=== PATIENT | male | born 1975 | race Caucasian/White ===

== ENCOUNTER 2018-06-09 06:58 | Emergency (ER) | payer SELFPAY ==
[2018-06-09] MEDS ORDERED: EPINEPHrine HCL AMP 1 MG/ML AMP IM ONE (07:05)
[2018-06-09] MEDS ORDERED: EPINEPHrine HCL AMP 1 MG/ML AMP ONE (07:09)
[2018-06-09] MEDS ORDERED: methylPREDNISolone SODIUM SUC 125 MG/2 ML VIAL IV ONE (07:32)
[2018-06-09] MEDS ORDERED: cefTRIAXone SODIUM 1 GM in SODIUM CHL 0.9% 50ML MIN-BAG+ 50 ML IVPB ONE (07:33)
[2018-06-09] MEDS ORDERED: cefTRIAXone SODIUM 1 GM VIAL ONE (07:39)
[2018-06-09] MEDS ORDERED: SODIUM CHL 0.9% 50ML MIN-BAG+ 50 ML IVPB ONE (07:39)
--- NOTE | 2018-06-09 08:00 | RAD ---
EXAM DESCRIPTION: Chest,2 Views CLINICAL HISTORY: 43 years Male, neck swelling, sob COMPARISON: None Available TECHNIQUE: PA/lateral FINDINGS: There is no cardiac or pulmonary abnormality. The lungs are clear. There is no effusion. IMPRESSION: 1. Normal two-view chest. Electronically signed by: Matt Garrett MD 06/09/2018 7:59 AM [employer]
--- NOTE | 2018-06-09 08:01 | CT ---
EXAM: CT head without contrast CLINICAL HISTORY: neck swelling, sob COMPARISON STUDY: None TECHNICAL: Noncontrast CT images were acquired through the brain. FINDINGS: The cerebral and cerebellar parenchyma appears normal. No intracranial hemorrhage. The ventricles are not dilated. There is incidental note of a cavum septum pellucidum. No masses are identified. The calvarium appears intact. Mucosal thickening is seen in a few right-sided ethmoid air cells. IMPRESSION: 1. No acute intracranial abnormality. 2. Right side ethmoid sinusitis. This exam was performed according to our departmental dose-optimization program, which includes automated exposure control, adjustment of the mA and/or kV according to patient size and/or use of iterative reconstruction technique. Electronically signed by: Juan Manuel Aparicio MD 06/09/2018 8:00 AM [facility]
--- NOTE | 2018-06-09 08:11 | CT ---
EXAM DESCRIPTION: Soft Tissue Neck w/Contrast CLINICAL HISTORY: 43 years Male, neck swelling, sob COMPARISON: Head CT examination June 09, 2018 TECHNIQUE: This exam was performed according to our departmental dose-optimization program, which includes automated exposure control, adjustment of the mA and/or kV according to patient size and/or use of iterative reconstruction technique. Contrast enhanced examination with MPR reformatted studies. FINDINGS: Normal alignment of the cervical spine with degenerative disc narrowing and posterior bony ridging at the C6-7 level with mild anterior spurs at this level and at the less degenerative C5-6 level. Mild straightening of the normal lordosis of the cervical spine is noted. No retropharyngeal or prevertebral soft tissue swelling or abscess is seen. There is heterogeneous enlargement and indistinctness and inflammatory changes surrounding both symmetrically enlarged submandibular gland suggesting an element of sialoadenitis. No significant involvement of the parotid glands is noted. The base of the tongue and the epiglottis and the larynx appear normal with a small normal appearance of the thyroid gland with no evidence of abnormality at the thoracic inlet or upper extent of the superior mediastinum. Region of the parapharyngeal space is indistinct and appears inflamed without drainable fluid collection or abscess with some fullness in each lateral pharyngeal sidewall suggesting some involvement of either palatine tonsillar region or pharyngeal mucosa with the inflammation. This lies just cephalad to the inflamed enlarged submandibular salivary glands. The intrinsic musculature of the tongue is intact. Innumerable small normal in upper normal lymph nodes are evident on both the left and with fewer but slightly larger lymph nodes noted along the anterior margin of the right sternocleidomastoid adjacent to the jugular vein. Conglomerate or necrotic or markedly enlarged lymph nodes to suggest either an abscess or neoplasm is not apparent. The appearance is most suggestive of an inflammatory process. The supraclavicular region and base of the neck and pulmonary apices are unremarkable. IMPRESSION: 1. Symmetric enlarged heterogeneous and inflamed appearing submandibular glands with surrounding inflammation in the adjacent soft tissue planes and subcutaneous structures consistent with bilateral sialoadenitis of the submandibular glands. An obstructing stone or drainable fluid collection or abscess is not apparent. 2. Mild bilateral neck adenopathy with numerous small nodes along the undersurface and posterior margin of the left sternocleidomastoid in the normal to upper normal range in fewer but slightly more prominent upper normal lymph nodes in the jugulodigastric region on the right. Reactive lymphadenopathy is thought most likely. 3. Mild deep soft tissue swelling above the submandibular glands and the region of the parapharyngeal space and lateral pharyngeal sidewall bilaterally without discrete mass or drainable abscess. 4. The base of the neck and thoracic inlet and region of the thyroid gland and superiorly the region of the parotid glands appears normal. No abnormality of the retropharyngeal space or effusion of the epiglottis noted. 5. Minimal mucosal thickening right maxillary and ethmoid sinuses with more significant mucosal thickening in the left maxillary sinus without a definite air-fluid level. Electronically signed by: Ryan Ny MD 06/09/2018 8:10 AM W[employer] ATTENDANT
[2018-06-09] MEDS ORDERED: metroNIDAZOLE IV PREMIX 500MG 500 MG in PREMIX BAG 1 BAG IVPB ONE (08:18)
[2018-06-09] MEDS ORDERED: VANCOMYCIN HCL INJ 1,000 MG, VANCOMYCIN HCL INJ 500 MG in SODIUM CHLORIDE 0.9% 250ML 25... IVPB ONE (08:23)
[2018-06-09] MEDS ORDERED: metroNIDAZOLE IV PREMIX 500MG 100 ML IVPB ONE (08:36)
[2018-06-09] MEDS ORDERED: SODIUM CHLORIDE 0.9% 250ML 250 ML ONE (08:43)
[2018-06-09] MEDS ORDERED: VANCOMYCIN HCL INJ 500 MG VIAL ONE (08:43)
[2018-06-09] MEDS ORDERED: VANCOMYCIN HCL INJ 1,000 MG VIAL IVPB ONE (08:43)
--- NOTE | 2018-06-09 08:55 | ED.PDOC ---
History of Present Illness - General Chief Complaint: Respiratory Problem Stated Complaint: short of breath, anxiety Time Seen by Provider: 06/09/18 07:14 Source: patient Exam Limitations: no limitations - History of Present Illness Initial Comments: The patient is a 43-year-old male presenting to the emergency room secondary to swelling in his neck causing some mild shortness of breath. He reports that the swelling started 4-6 hours ago. He reports that it started with pain underneath his tongue. The patient's vital signs are within normal limits upon arrival but he is obviously having an anxiety attack. There does appear to be some mild posterior oropharyngeal swelling but no obvious focal abscess. No swelling of the uvula. He is speaking clearly. He is moving air well. He does have significant swelling of the area surrounding the submandibular glands bilaterally. He reports that it was not like this last night at all when he went to bed. He does report methamphetamine use. He denies other significant medical problems. He reports having a headache. He reports feeling a little bit fuzzy headed but he is not confused. The patient's shortness of breath did significantly improve after we were able to calm him down. Due to the rapidity of onset he did receive one trial dose of 0.3 mg of epinephrine IM. This did not really change his condition. No evidence of any hypotension. He was mildly diaphoretic upon arrival but he was obviously in an anxiety attack. Timing/Duration: 4-6 hours Severity: severe Improving Factors: nothing Worsening Factors: nothing Associated Symptoms: cough, headaches, shortness of breath Allergies/Adverse Reactions: Allergies NO KNOWN ALLERGY Allergy (Verified 06/09/18 07:04) Home Medications: Ambulatory Orders NK 06/09/18 Review of Systems - Review of Systems Constitutional: States: diaphoresis EENTM: States: throat pain, throat swelling Respiratory: States: short of breath Cardiology: States: no symptoms reported Gastrointestinal/Abdominal: States: no symptoms reported Genitourinary: States: no symptoms reported Musculoskeletal: States: no symptoms reported Skin: States: no symptoms reported Neurological: States: anxiety Endocrine: States: no symptoms reported All other Systems: No Change from Baseline Past Medical History (General) - Patient Medical History Hx Asthma: No Hx of COPD: No Hx Cardiac Disorders: No Hx Hypertension: No Hx Diabetes: No Hx Cancer: No Hx Hepatitis C: No - Vaccination History Hx Tetanus, Diphtheria Vaccination: Yes Hx Influenza Vaccination: Yes - Social History Hx Tobacco Use: Yes Hx Chewing Tobacco Use: Yes Hx Alcohol Use: No Hx Substance Use: Yes Family Medical History - Family History Mother Family History: No Known Physical Exam - Physical Exam General Appearance: Alert, Anxious Eye Exam: bilateral normal Ears, Nose, Throat: hearing grossly normal, other - there is some significant posterior or pharyngeal diffuse swelling. Neck: other - the patient does have tender bilateral submandibular glands that are swollen significantly. No real reddening of the skin at this point. Respiratory: lungs clear, normal breath sounds, no respiratory distress, no accessory muscle use Cardiovascular/Chest: normal peripheral pulses, regular rate, rhythm, no edema Peripheral Pulses: radial,right: 2+, radial,left: 2+, dorsalis pedis,right: 2+, dorsalis pedis,left: 2+ Gastrointestinal/Abdominal: non tender, soft Rectal Exam: deferred Back Exam: no CVA tenderness, no vertebral tenderness Extremity: non-tender, normal inspection, no pedal edema, normal capillary refill Neurologic: distribution estimator II-XII nml as tested, alert, normal mood/affect - after we were able to calm his anxiety, oriented x 3 Skin Exam: normal color Comments: Vital Signs - 24 hr 06/09/18 06/09/18 06/09/18 07:16 07:25 07:56 Temperature 96.5 F L Pulse Rate [ 87 102 H MONITOR] Respiratory 22 22 24 Rate Blood Pressure 161/105 173/99 [LA] O2 Sat by Pulse 97 97 Oximetry 06/09/18 08:45 Temperature Pulse Rate [ 85 MONITOR] Respiratory 16 Rate Blood Pressure 151/88 [LA] O2 Sat by Pulse 95 Oximetry Progress - Progress Progress: 06/09/18 08:59 the patient is a 43-year-old male presenting to the emergency room secondary to appears to be bilateral submandibular sialoadenitis. Picture is somewhat concerning for the development of Chris angina. So far no fever and laboratory work is reassuring. A blood culture has been performed. He has received a dose of Rocephin and metronidazole and is being started on vancomycin. He has also received a dose of Solu-Medrol and initially did receive 0.3 mg of epinephrine IM without much response. He is not in respiratory distress. He is alert and oriented. He did have recent methamphetamine use. He is being transferred to [facility] for higher level of care with possible ENT evaluation if needed. Vital signs have remained stable. No evidence of any hypoxia. - Results/Orders Results/Orders: 06/09/18 07:15 GROUP A STREP SCREEN, RAPID Stat 06/09/18 08:11 URINE DRUG SCREEN, 7 ASSAY Stat BLOOD CULTURE Stat 06/09/18 08:18 metroNIDAZOLE IV PREMIX 500MG [Flagyl IV Premix 500 MG/100 ML] 500 mg Premix Bag 1 bag IVPB ONCE 06/09/18 08:23 Vancomycin HCl Inj 1,000 mg Vancomycin HCl Inj 500 mg Sodium Chloride 0.9% 250Ml [NS 250ml] 250 ml IVPB ONCE 06/09/18 08:50 INFLUENZA A & B BY PCR Stat Laboratory Results - last 24 hr 06/09/18 06/09/18 07:00 08:00 WBC 7.0 RBC 5.62 Hgb 15.6 Hct 46.1 MCV 82.1 MCH 27.8 MCHC 33.9 RDW 13.6 Plt Count 254 MPV 6.9 L Absolute Neuts (auto) 4.90 Absolute Lymphs (auto) 1.20 Absolute Monos (auto) 0.60 Absolute Eos (auto) 0.20 Absolute Basos (auto) 0.00 Neutrophils % 70.1 Lymphocytes % 17.4 L Monocytes % 9.1 H Eosinophils % 2.8 Basophils % 0.6 PT 9.8 INR 0.98 PTT (SP) 26.9 Sodium 135 Potassium 3.6 Chloride 98 L Carbon Dioxide 28 Anion Gap 12.6 BUN 11 Creatinine 0.94 BUN/Creatinine Ratio 11.7 Random Glucose 104 Serum Osmolality 269.8 L Calcium 8.8 Magnesium 2.1 Creatine Kinase 374 H* CK-MB (CK-2) 7.8 H* CK-MB (CK-2) % 2.09 Troponin I < 0.02 Urine Color Yellow Urine Appearance Clear Urine pH 7.0 Ur Specific [place] 1.020 Urine Protein Negative Urine Glucose (UA) Negative Urine Ketones Negative Urine Blood Negative Urine Nitrite Negative Urine Bilirubin Negative Urine Urobilinogen 0.2 Ur Leukocyte Esterase Negative Urine RBC 0 Urine WBC 0 Ur Epithelial Cells 0 Urine Bacteria [address] shows no evidence of any acute intracranial pathology. He does have an ethmoid sinusitis. Soft tissue CT scan of the neck with IV contrast shows significant bilateral submandibular sialoadenitis with significant swelling of the parapharyngeal tissue just caudal to the submandibular glands. No stone in the ducts are noted. No abscess formation. - EKG/XRAY/CT CT Ordered: No Departure - Departure Clinical Impression: Chris's angina syndrome Disposition: Transfer to Hospital Condition: Serious Departure Forms: ED Discharge - Pt. Copy, Patient Portal Self Enrollment Home Medications: Ambulatory Orders NK 06/09/18 Transfer to Outside Facility - Transfer Information Accepting Provider:: dr catherine Accepting Facility: [facility] Reason for Transfer: required specialist not available
[2018-06-09] MEDS ORDERED: OSELTAMIVIR 75 MG CAP PO ONE (09:13)
[2018-06-09] MEDS ORDERED: PENICILLIN BENZATHINE 1.2 MU 1.2 MU/2 ML SYG IM ONE ×3 (09:45→09:46)
[2018-06-09 10:14] VITALS: BP 153/93; TEMP 97.1; O2SAT 94
== END 2018-06-09 09:45 | disposition short-term general hospital (02) ==
LOC: ER 06:58
DX: K12.2 Cellulitis and abscess of mouth (principal); J10.1 Influenza due to other identified influenza virus with other respiratory manifestations; J02.0 Streptococcal pharyngitis; Z87.891 Personal history of nicotine dependence
CPT/HCPCS: 36415; 70450; 70491; 71046; 80048; 80307; 81001; 82550; 82553; 84484; 85025; 85610; 85730; 87502; 87880; J0561; J0696; J2930; J3370; J3490; J7050